=== PATIENT | male | born 1990 | race Caucasian/White ===

== ENCOUNTER 2021-05-07 05:40 | Emergency (ER) | payer OTHER ==
[~2021-05-07] VITALS: Ht 180.3 cm; Wt 79.4 kg
[2021-05-07 05:40] VITALS: BP 146/85
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
[2021-05-07 06:00] VITALS: BP 146/85
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
[2021-05-07] MEDS ORDERED: NAPR-54 PO (14:54)
== END 2021-05-07 06:00 ==
LOC: MED 05:40
DX: Z02.89 Encounter for other administrative examinations (principal)
CPT/HCPCS: 99283

== ENCOUNTER 2021-05-07 12:59 | Emergency (ER) | payer OTHER ==
[~2021-05-07] VITALS: Ht 180.3 cm; Wt 79.8 kg
[2021-05-07 13:02] VITALS: BP 122/68
--- NOTE | 2021-05-07 13:05 | NUR ---
PT TO AWAIT IN LOBBY
[2021-05-07] MEDS ORDERED: KETOROLAC 30 MG/ML VIAL IM ONE (13:15)
--- NOTE | 2021-05-07 13:38 | NUR ---
PT BACK FROM [facility] AND TAKEN TO CHAIR B
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
[2021-05-07] MEDS ORDERED: NAPR-54 PO (14:54)
--- NOTE | 2021-05-07 14:59 | NUR ---
Patient discharged with v/s stable. Written and verbal after care instructions ABOUT RIB FRACTURE given and explained. Patient alert, oriented and verbalized understanding of instructions. Ambulatory with steady gait. All questions addressed prior to discharge. ID band removed. Patient advised to follow up with PMD. Rx of NAPROXEN given. Patient educated on indication of medication including possible reaction and side effects. Opportunity to ask questions provided and answered.
== END 2021-05-07 14:59 | disposition home or self-care (01) ==
LOC: MED 12:59
DX: S22.31XA Fracture of one rib, right side, initial encounter for closed fracture (principal); M25.559 Pain in unspecified hip; M54.2 Cervicalgia; V89.2XXA Person injured in unspecified motor-vehicle accident, traffic, initial encounter; Y93.89 Activity, other specified; Y92.89 Other specified places as the place of occurrence of the external cause; Y99.8 Other external cause status
CPT/HCPCS: 71101; 96372; 99283; J1885

== ENCOUNTER 2022-11-07 18:21 | Emergency (ER) | payer OTHER ==
[~2022-11-07] VITALS: Ht 177.8 cm; Wt 84.4 kg
[~2022-11-07 18:21] MED LIST: NAPR-54 PO
[2022-11-07 18:29] VITALS: BP 131/81
--- NOTE | 2022-11-07 19:56 | NUR ---
PT RETURN FROM RADIOLOGY
[2022-11-07] MEDS ORDERED: BACITRACIN OINT 500 UNITS/GM PKT TP ONE (21:10)
[2022-11-07] MEDS ORDERED: NEOM1OIN15 TP (21:12)
[2022-11-07 21:54] VITALS: BP 131/81
== END 2022-11-07 21:52 | disposition home or self-care (01) ==
LOC: MED 18:21
DX: S02.5XXA Fracture of tooth (traumatic), initial encounter for closed fracture (principal); S01.511A Laceration without foreign body of lip, initial encounter; S10.91XA Abrasion of unspecified part of neck, initial encounter; S60.512A Abrasion of left hand, initial encounter; S60.511A Abrasion of right hand, initial encounter; Z79.1 Long term (current) use of non-steroidal anti-inflammatories (NSAID); Z79.2 Long term (current) use of antibiotics; V28.49XA Other motorcycle driver injured in noncollision transport accident in traffic accident, initial encounter; Y93.89 Activity, other specified; Y92.410 Unspecified street and highway as the place of occurrence of the external cause; Y99.8 Other external cause status
CPT/HCPCS: 70486; 73110; 90471; 90715; 99285

== ENCOUNTER 2024-04-17 12:29 | Emergency (ER) | payer OTHER ==
[~2024-04-17] VITALS: Ht 180.3 cm; Wt 81.6 kg
[~2024-04-17 12:29] MED LIST changes: +NAPR-337 PO; -NAPR-54 PO; +NEOM1OIN15 TP
[2024-04-17 12:52] VITALS: BP 136/77; PULSE 66; RESP 16; TEMP 97.1; O2SAT 100
[2024-04-17] MEDS: LIDOCAINE MPF 2% 100 MG/5 ML VIAL INJ ONE (13:40)
[2024-04-17] MEDS ORDERED: LIDOCAINE 2% 100 MG/5 ML SYR IVP ONE (14:53)
[2024-04-17] MEDS: LIDOCAINE MPF 1% 10 MG/ML VIAL INJ ONE (15:21)
== END 2024-04-17 15:40 | disposition home or self-care (01) ==
LOC: MED 12:29
DX: S01.01XA Laceration without foreign body of scalp, initial encounter (principal); R03.0 Elevated blood-pressure reading, without diagnosis of hypertension; Z79.899 Other long term (current) drug therapy; X58.XXXA Exposure to other specified factors, initial encounter; Y92.009 Unspecified place in unspecified non-institutional (private) residence as the place of occurrence of the external cause; Y93.89 Activity, other specified; Y99.8 Other external cause status
CPT/HCPCS: 12002; 99282; J2001